=== PATIENT | female | born 1990 | race Caucasian/White ===

== ENCOUNTER 2016-03-10 12:51 | Emergency (ER) | payer OTHER ==
[~2016-03-10] VITALS: Ht 157.5 cm; Wt 60.0 kg
[~2016-03-10 12:51] MED LIST: IBUP600 PO; PREN0.01 PO
[2016-03-10 12:53] VITALS: BP 157/72; PULSE 119; RESP 15; TEMP 98.2; O2SAT 97
--- NOTE | 2016-03-10 14:07 | PD ---
HPI Chief Complaint: Related Problem Time Seen by Provider: 14:07 Travel History International Travel<30 days: No Contact w/Intl Traveler<30days: No Traveled to known affect area: No History of Present Illness HPI 26-year-old female with no significant medical history, presents to emergency department for evaluation of vaginal bleeding. Describes the bleeding as light and pink. She really only notices it when she wipes. She states she has had some on her pad and it seems to be more. Patient believes she is approximately 7 weeks . This is her second . She has had no miscarriages or abortions prior. She is otherwise healthy. No significant abdominal cramping or pain. No urinary symptoms. No recent illnesses, fever, chills. She has no other symptoms to report. [employer] TENDER is Dr. Ocampo. [facility] Past Medical History Medical History: Denies Significant Hx ?: LMP: 12/2015 Social History Alcohol Use: No Tobacco Use: No Allergies-Medications (Allergen,Severity, Reaction): Coded Allergies: Penicillin (Verified Allergy, Severe, Anaphylaxis, 08/22/13) Reported Meds & Prescriptions Reported Meds & Active Scripts Active Motrin 600 Mg Tab (Ibuprofen) 600 Mg Tab 600 Mg PO Q6H PRN Reported Vit ( Plus) (Prenat Multivit/[place]/Iron/Folic Ac) Tab 1 Tab PO DAILY Review of Systems Except as stated in HPI: all other systems reviewed are Neg Physical Exam Narrative GENERAL: Well-nourished, well-developed email patient, ambulatory no acute distress SKIN: Warm and dry. HEAD: Normocephalic. EYES: No scleral icterus. No injection or drainage. NECK: Supple, trachea midline. No JVD or lymphadenopathy. CARDIOVASCULAR: Regular rate and rhythm without murmurs, gallops, or rubs. RESPIRATORY: Breath sounds equal bilaterally. No accessory muscle use. Abdomen: Abdomen soft, non-tender, nondistended. Positive bowel sounds. No hepato-splenomegaly, or palpable masses. No guarding. MUSCULOSKELETAL: No cyanosis, or edema. BACK: Nontender without obvious deformity. No CVA tenderness. Data Data Last Documented VS Vital Signs Date Time Temp Pulse Resp B/P Pulse Ox O2 Delivery O2 Flow Rate FiO2 03/10/16 12:53 98.2 119 15 157/72 97 Orders Beta Hcg (Quant/Titer) (03/10/16 14:04) Urinalysis - C+S If Indicated (03/10/16 14:04) Ed Urine Pregnancytest Poc (03/10/16 14:04) [facility] Medical Decision Making Medical Screen Exam Complete: Yes Emergency Medical Condition: Yes Medical Record Reviewed: Yes Differential Diagnosis Threatened versus missed versus vaginal bleeding versus UTI Narrative Course 18 year-old female presents to emergency department. Patient appears overall well and without distress. She describes the bleeding as light. She is otherwise asymptomatic. Beta hCG and urine are ordered here in triage. Month medical but consolable, patient will be transferred and care assumed by that provider. Condition: Stable MildredCatherineDonnacharline MCKEON Mar 10, 2016 14:07
--- NOTE | 2016-03-10 15:09 | PD ---
Physical Exam Narrative Patient was seen in triage. Please refer to presentation full H&P. Briefly patient comes in for evaluation of possible miscarriage. Patient reports she is roughly 7 weeks over the past couple days has noticed blood when she wipes after voiding as well as blood in the toilet. Patient denies abdominal pain, fevers, vomiting, diarrhea, chest pain, or shortness breath. Patient reports she took 3 home test that were all positive. Patient reports she is A0. GENERAL: Well-developed, well nourished, in no acute distress, and non-ill appearing. SKIN: Warm and dry. HEAD: Atraumatic. Normocephalic. EYES: Pupils equal and round. EOMI. No scleral icterus. No injection or drainage. ENT: No nasal bleeding or discharge. Mucous membranes pink and moist. NECK: Trachea midline. Supple. No nuclear rigidity. CARDIOVASCULAR: Regular rate and rhythm. No murmur appreciated. RESPIRATORY: No accessory muscle use. No respiratory distress. Clear to auscultation. Breath sounds equal bilaterally. GASTROINTESTINAL: Abdomen soft, non-tender, nondistended. Hepatic and splenic margins not palpable. Normal bowel sounds 4. No pulsatile mass. GENITOURINARY: Normal external genitalia without lesions or erythema. Vaginal vault with scant amount blood. Cervical os was closed without drainage. Bimanual exam deferred. Exam was the preformed on presence staffing administrator Lisa at all times. MUSCULOSKELETAL: No obvious deformities. No clubbing. No cyanosis. No edema. Full range of motion. NEUROLOGICAL: Awake and alert. No obvious cranial nerve deficits. Motor grossly within normal limits. Normal speech. PSYCHIATRIC: Appropriate mood and affect; insight and judgment normal. Data Data Last Documented VS Vital Signs Date Time Temp Pulse Resp B/P Pulse Ox O2 Delivery O2 Flow Rate FiO2 03/10/16 12:53 98.2 119 15 157/72 97 Orders Beta Hcg (Quant/Titer) (03/10/16 14:04) Urinalysis - C+S If Indicated (03/10/16 14:04) Ed Urine Pregnancytest Poc (03/10/16 14:04) Complete Blood Count With Diff (03/10/16 16:00) Basic Metabolic Panel (Bmp) (03/10/16 16:00) Complete Rh (03/10/16 16:00) Us Pelvis (Ques Pr/Ect)W Trans (03/10/16 ) Labs Laboratory Tests Test 03/10/16 03/10/16 03/10/16 14:20 15:10 16:33 Urine Color COLORLESS Urine Turbidity CLEAR Urine pH 6.0 Urine Specific [place] 1.004 Urine Protein NEG mg/dL Urine Glucose (UA) NEG mg/dL Urine Ketones NEG mg/dL Urine Occult Blood TRACE Urine Nitrite NEG Urine Bilirubin NEG Urine Urobilinogen LESS THAN 2.0 MG/DL Urine Leukocyte Esterase NEG Urine WBC LESS THAN 1 /hpf Urine Squamous Epithelial <1 /hpf Cells Microscopic Urinalysis Comment CULT NOT INDICATED Human Chorionic Gonadotropin, 26360 MIU/ML Quant White Blood Count 9.4 TH/MM3 Red Blood Count 4.62 MIL/MM3 Hemoglobin 13.7 GM/DL Hematocrit 40.3 % Mean Corpuscular Volume 87.3 FL Mean Corpuscular Hemoglobin 29.7 PG Mean Corpuscular Hemoglobin 34.0 % Concent Red Cell Distribution Width 13.1 % Platelet Count 170 TH/MM3 Mean Platelet Volume 11.3 FL Neutrophils (%) (Auto) 65.2 % Lymphocytes (%) (Auto) 27.1 % Monocytes (%) (Auto) 6.4 % Eosinophils (%) (Auto) 0.7 % Basophils (%) (Auto) 0.6 % Neutrophils # (Auto) 6.1 TH/MM3 Lymphocytes # (Auto) 2.5 TH/MM3 Monocytes # (Auto) 0.6 TH/MM3 Eosinophils # (Auto) 0.1 TH/MM3 Basophils # (Auto) 0.1 TH/MM3 CBC Comment DIFF FINAL Differential Comment Sodium Level 139 MEQ/L Potassium Level 3.6 MEQ/L Chloride Level 104 MEQ/L Carbon Dioxide Level 28.6 MEQ/L Anion Gap 6 MEQ/L Blood Urea Nitrogen 14 MG/DL Creatinine 0.72 MG/DL Estimat Glomerular Filtration 96 ML/MIN Rate Random Glucose 89 MG/DL Calcium Level 8.7 MG/DL Blood Type A POSITIVE Rho(D) Type POSITIVE MDM Supervised Visit with JOEY: No Differential Diagnosis Irregular menstrual cycle, early , ectopic , other Narrative Course Patient presented with vaginal bleeding and and the test was positive. Ultrasound was performed and there is evidence of a developing uterine . There is no evidence to suggest ectopic , nor cervicitis, PID or torsion at this time. There was no evidence to support colitis, diverticulitis, obstruction, abdominal or femoral herniation, volvulus , early appendicitis, or hernial incarceration or strangulation at this time. Patient is stable and no clinical evidence of anemia. There is no RH incompatibility. Possibility of a threatened was discussed with the patient. The patient was instructed to follow up with OB within 2-3 days, for repeat bloodwork and possible repeat ultrasound, and was given contact information. She was given warnings to return if bleeding worsened, passed tissue, felt faint or passed out, fever, worsening pain, inability to tolerate fluids, or as needed. The patient agreed with plan. Patient in no obvious distress upon re-evaluation. All pertinent laboratory/ Radiology result(s) discussed with patient/family. Patient was asked if they wanted to speak to my attending, which the patient did not wish to do at this time. Any questions/concerns in reference to patient diagnosis/condition discussed and clarified prior to patient's discharge. Reinforced sheer importance of close follow up with patient's primary physician or primary care clinic. Instructed patient to return to ED immediately, if symptoms return/ worsen. Pt showed understanding of above instructions. Further instructions and recommendations were detailed in discharge paperwork. Pt ambulated without difficulty out of ED at discharge. Diagnosis Primary Impression: Threatened miscarriage in early Referrals: [facility] Patient Instructions: General Instructions, Threatened Miscarriage (ED) Additional Instruction: Follow-up with your OB in 48 hours or return here to have year hCG rechecked. Return to the emergency department if symptoms get worse. Disposition: 01 DISCHARGE HOME Condition: Stable Rangel Razo Mar 10, 2016 15:09
[2016-03-10 15:14] LABS: BLOOD, URINE TRACE (NEG); GLUCOSE,URINE NEG (NEG); KETONE, URINE NEG (NEG); NITRITE,URINE NEG (NEG); SQUAMOUS EPITHELIAL CELL URINE <1 /hpf (0-5); URINE COLOR COLORLESS (YELLW/STRAW)
[2016-03-10] MEDS ORDERED: CALNTAB PO (15:19)
[2016-03-10 15:21] LABS: COMMENT (UR) CULT NOT INDICATED; CULTURE IF INDICATED CULT NOT INDICATED
[2016-03-10 15:58] LABS: BETA HCG QUANT 10562 MIU/ML (0-5)
[2016-03-10 16:58] LABS: AUTOMATED NEUTROPHIL # 6.1 TH/MM3 (1.8-7.7); BASOPHIL # 0.1 TH/MM3 (0-0.2); BASOPHIL % 0.6 % (0.0-2.0); EOSINOPHIL # 0.1 TH/MM3 (0-0.4); EOSINOPHIL % 0.7 % (0.0-4.0); HEMATOCRIT 40.3 % (35.0-46.0); HEMO FLAGS DIFF FINAL; LYMPH % 27.1 % (9.0-44.0); LYMPHOCYTE # 2.5 TH/MM3 (1.0-4.8); MEAN CELL VOLUME 87.3 FL (80.0-100.0); MEAN CORPUSCULAR HEMOGLOBIN 29.7 PG (27.0-34.0); MONO % 6.4 % (0.0-8.0); NEUT % 65.2 % (16.0-70.0); PLATELET COUNT 170 TH/MM3 (150-450); RED BLOOD COUNT 4.62 MIL/MM3 (4.00-5.30); RED CELL DISTRIBUTION WIDTH 13.1 % (11.6-17.2); WHITE BLOOD COUNT 9.4 TH/MM3 (4.0-11.0)
[2016-03-10 17:10] LABS: BICARBONATE 28.6 MEQ/L (21.0-32.0); POTASSIUM 3.6 MEQ/L (3.5-5.1)
--- NOTE | 2016-03-10 19:42 | RADRPT ---
EXAM DATE/TIME: 03/10/2016 17:33 [place] COMPARISON: No previous studies available for comparison. INDICATIONS : Bleeding with . LAB(S): Beta-hC MEDICAL HISTORY : . Vaginal bleeding with . SURGICAL HISTORY : None. ENCOUNTER: Initial ACUITY: 1 day PAIN SCORE: 0/10 LOCATION: Bilateral pelvis MEASUREMENTS: UTERUS: 9.6 x 5.8 x 4.2 cm ENDOMETRIAL STRIPE: 2 mm RIGHT OVARY: 3.3 x 2.1 x 1.3 cm LEFT OVARY: 3.6 x 2.7 x 2.1 cm FINDINGS: No focal abnormalities identified within the body of the uterus. Small amount of blood in the endomet rial canal. No heart rate identified. [place]-rump length and gestational sac size characteristic of an approximately 6 week 3 day . Yolk sac present. Right ovary within normal limits. Prob able corpus luteum cyst left ovary measuring up to 2.1 cm. CONCLUSION: 1. pole identified with suspected gestational age of about 6 weeks and 3 days by crown-rump sabas gth. However, no heart rate identified. Probable hemorrhage in the endometrial canal. Taz Massey MD on March 10, 2016 at 19:28 Board Certified Radiologist. This report was verified electronically.
== END 2016-03-10 20:06 | disposition home or self-care (01) ==
LOC: NEPE 12:51
DX: O20.0 Threatened abortion (principal); Z3A.01 Less than 8 weeks gestation of pregnancy
CPT/HCPCS: 76700; 76817; 80048; 81001; 84702; 84703; 85025; 86901; 99284